=== PATIENT | female | born 1945 | race Caucasian/White ===

== ENCOUNTER 2017-01-11 12:06 | Inpatient (IN) | payer MEDICARE, OTHER ==
[2017-01-11] MEDS ORDERED: diphenhydrAMINE 50 MG/ML VIAL ONE (13:00)
[2017-01-11] MEDS ORDERED: Metoclopramide HCl 10 MG/2 ML VIAL ONE (13:00)
--- NOTE | 2017-01-11 13:03 | RAD ---
PORTABLE CHEST: HISTORY: Chest pain. FINDINGS: Heart size is within normal limits. Some atherosclerotic change of the aorta. Sclerotic-appearing d ensity in the right mid lung field could be related to a bone island or a granuloma within the lung. IMPRESSION: No active intrathoracic disease. POS: [facility]
[2017-01-11 13:10] LABS: #Monocytes 0.2 thou/uL (0.11-0.59); #Neutrophils 4.1 thou/uL (1.40-6.50); %Basophils 0.5 % (0.0-1.0); %Eosinophils 0.6 % (0.0-10.0); %Monocytes 3.7 % (0.0-10.0); Hematocrit 37.6 % (36.0-47.0); Mean Platelet Volume 5.4 fL (7.4-10.4); Red Blood Cell (RBC) Count 4.15 mill/uL (4.20-5.40); White Blood Cell (WBC) Count 5.4 thou/uL (4.8-10.8)
[2017-01-11 13:19] LABS: Prothrombin Time 13.6 SEC (12.0-14.7)
[2017-01-11 13:27] LABS: ALT (SGPT) 14 U/L (8-55); AST (SGOT) 18 U/L (5-34); Alkaline Phosphatase 88 U/L (40-150); Anion Gap 13 mmol/L (10-20); BUN (Urea Nitrogen) 15 mg/dL (9.8-20.1); Bilirubin, Total 0.5 mg/dL (0.2-1.2); Calc. Creatinine Clearance 0 mL/min (70-130); Carbon Dioxide 24 mmol/L (23-31); Chloride 105 mmol/L (98-107); Estimated GFR-MDRD 90; Protein, Total 6.4 g/dL (6.0-8.3)
[2017-01-11 13:30] LABS: Troponin I Less than 0.010 ng/mL (< 0.028)
[2017-01-11] MEDS ORDERED: Iopamidol 370 76% 100 ML VIAL ONE (13:37)
[2017-01-11] MEDS ORDERED: Dexamethasone 10 MG/ML VIAL ONE ×2 (13:47→13:50)
[2017-01-11] MEDS ORDERED: cefTRIAXone\\ROCEPHIN 1 GM VIAL ONE (13:48)
[2017-01-11] MEDS ORDERED: Sodium Chloride 0.9% 100 ML ONE (13:48)
--- NOTE | 2017-01-11 14:13 | CT ---
CT ANGIOGRAM OF THE HEAD WITH AND WITHOUT CONTRSAT CT ANGIOGRAM OF THE NECK WITH CONTRAST: DATE: 01/11/17. HISTORY: A 71-year-old female with right-sided severe headache, worst headache of life. Dr. Weiss discussed the findings by telephone with Dr. Jackson at 1:23 p.m. on 01/11/17. TECHNIQUE: Noncontrast scan of brain performed. IV contrast injected. Arterial bolus technique scan performed from aortopulmonic window to the vertex of the head. Coronal and sagittal 3D MIP reconstructions. FINDINGS: On a previous MRI of the brain on 03/17/14, there were signs of prior transsphenoidal resection of the pituitary gland, with material that was isointense to brain parenchyma on T1WI, and heterogeneously m ixed signal intensity on T2WI, within an expanded sphenoid sinus. This was covered by diffusely chalk machine operator nically thickened bone, including at the floor of the sphenoid sinus. Now, there is a large defect i n that osseous floor of the sphenoid sinus and sphenoid body, such that the soft tissue density mater ial filling the postoperative sphenoid sinus protrudes slightly into the posterior superior aspect of the nasal cavity, reaching the posterior aspects of the middle turbinates bilaterally. This soft ti ssue density material is not fat density. There is a small pocket of gas within this mass. There is also an approximately 4 mm metallic foreign body within the posterior aspect of the sella turcica. There is no evidence of recurrent pituitary macroadenoma within the sella turcica or suprasellar cist liliana. There is no high-grade stenosis, occlusion, or aneurysm of the anterior circulation or posterior circ ulation of the [place]. Right vertebral artery is dominant. No calcified atherosclerotic p laque is visualized, including in the carotid siphons or proximal bilateral internal carotid arteries . There is no evidence of high-grade stenosis involving the right subclavian, brachiocephalic, bilat eral vertebral, bilateral common carotid, or bilateral internal carotid arteries. Proximal left subc lavian artery is normal. Mid and distal portions are obscured by beam-hardening artifact from dense contrast material within the adjacent left subclavian vein. There is severe kyphosis of the cervical spine, with multilevel severe degenerative disk disease. There are laminectomy defects from C2-3 th rough C4-5. The ventricles are normal in size and configuration. There is no intracranial mass effect, midline s hift, or acute hemorrhage (subarachnoid, epidural, subdural, or intraaxial). No mass effect or midlin e shift. No extraaxial fluid collection. There are patchy moderate chronic ischemic white matter ch anges of the cerebral white matter bilaterally. Calvarium is intact. The maxillary, frontal, and et hmoid sinuses are grossly clear. Bilateral tympanomastoid cavities are also grossly clear. IMPRESSION: 1. Signs of previous transsphenoidal resection of pituitary lesion. 2. Soft tissue mass filling the sphenoid sinus, with new wide bony dehiscence of the floor of the sp henoid sinus and sphenoid body, such that the soft tissue density mass within the sphenoid sinus prot rudes into the posterior superior aspect of the nasal cavity. It is uncertain whether this represent s neoplastic tumor such as downward growth of a recurrent pituitary macroadenoma, or a chronic/subacu te infectious or inflammatory mass. Recommend otolaryngology consultation. 3. Small metallic foreign body within the sella turcica. 4. No acute intracranial findings. 5. No evidence of intracranial aneurysm or aneurysm rupture. 6. No evidence of abnormality of [place] or major arteries of neck. 7. Cervical spondylosis, with multilevel severe degenerative disc disease. 8. Status post laminectomies throughout most of the levels of the cervical spine, CODE CR POS: [facility]
[2017-01-11] MEDS ORDERED: Ondansetron ODT 4 MG TAB SL PRN (16:44)
[2017-01-11] MEDS ORDERED: Ondansetron HCl/PF 4 MG/2 ML Vial IVP PRN (16:44)
[2017-01-11] MEDS ORDERED: Acetaminophen 325 MG TAB PO PRN (16:44)
[2017-01-11 16:53] VITALS: BMI 19.5
[2017-01-11] MEDS ORDERED: FLU VACC TS2017-18 (>65YR) 0.5 ML SYRINGE IM ONE (18:00)
[2017-01-11] MEDS ORDERED: traMADol HCl 50 MG TAB PO PRN (18:45)
[2017-01-11 19:31] LABS: Troponin I Less than 0.010 ng/mL (< 0.028)
[2017-01-12] MEDS: cefTRIAXone\\ROCEPHIN 1 GM in Syringe 10 ML SLOW IVP SCH ×2 (01:12→15:06)
--- NOTE | 2017-01-12 06:58 | HP ---
DATE OF ADMISSION: 01/11/2017 PRIMARY CARE PHYSICIAN: Dr. Lmaonte Chan. CHIEF COMPLAINT: Headache. HISTORY OF PRESENT ILLNESS: The patient states she has had intermittent dizzy spells, waxing and wan ing without severely cause not related to positional aspects. No vertigo reported since approximatel y July to August. What made her present to the emergency department was predominantly a right-sided he adache wrapping around, increasing in intensity where she has had in her life, has a notable history of pituitary adenoma, which was grouped in [place]. Has had no known recurrence to this point. The patient otherwise has no acute complaints. CT head presentation to the emergency department has foun d a possible mass versus infection and sinuses. On review of past medical, family, social, and surgical history, the patient with migraine history wi th aura, hyperlipidemia, renal calculi, hypertension, chronic back pain. PAST SURGICAL HISTORY: Fixation of a closed nondisplaced fracture of right foot. SOCIAL HISTORY: Patient denies any tobacco or alcohol use, currently , living with spouse. ALLERGIES: No known drug allergies. CURRENT HOME MEDICATIONS: Included Tylenol #3 with codeine, multivitamin, omega 3 fish oil and CoQ10 . PHYSICAL EXAMINATION: VITAL SIGNS: On arrival to floor temperature of 97.7, pulse of 78, respiratory rate of 18, oxygen sa turation 96%, blood pressure 125/80. GENERAL: The patient is alert and oriented, no acute distress. HEENT: Normocephalic, atraumatic. Extraocular movements are intact. Pupils are equal, round, and r eactive to light and accommodate. Sensorium is intact to forehead and cheeks bilaterally. Cranial n erves II-XII intact grossly on exam. NECK: Supple, nontender. HEART: Regular rate and rhythm. No murmurs auscultated. LUNGS: Clear to auscultation bilaterally. No rubs or wheezes. ABDOMEN: Soft, nontender, positive bowel sounds throughout. EXTREMITIES: Lower extremities without cyanosis or edema. Patient appears anxious. LABORATORY WORK: White blood cell count of 5.4, hemoglobin 12.4, platelet count of 243, left shift o f 77.2% on neutrophils. INR of 1.0. Troponins x2 less than 0.01. Sodium of 138, potassium of 3.9, chloride 105, CO2 of 24, BUN of 15, creatinine of 0.65, glucose of 106, calcium of 9.0. AST of 18, A LT of 14. Albumin of 3.4. REVIEW OF IMAGING: CT angiogram of head. Previous resection of pituitary lesion, transsphenoidal ap proach, soft tissue mass filling sphenoid sinus, uncertain etiology, infection versus inflammatory ma ss, metallic clip on sella turcica noted. Cervical spine degenerative disk disease noted on exam rosalva alston has status post laminectomy of cervical spine, sinus CT pending. Chest x-ray without acute ca rdiopulmonary events. Patient did report chest tightness, no shortness breath, no cough. No fevers, no chills. Positive for headache. Positive waxing and waning, dizziness. Patient reports global s omatic pain radiating across multiple nerve roots upper and lower extremities bilaterally. ASSESSMENT AND PLAN: Sphenoidal mass. Differential diagnosis of possible recurrence of pituitary ad enoma versus infection versus inflammatory mass. ENT was contacted by the emergency department staff , so this could be worked up on an outpatient basis; however, concerns for patient's headache and kristina st tightness, desired observation status for rule out TIA versus acute coronary syndrome. Troponins x2 negative, no EKG changes, noncardiac pain and profile largely somatic. I do not feel this is card iac in nature. Pending CT sinus rated as well as pending MRI given any potential ability to do so wi th sella turcica clip in place. Better look for microadenoma metastases to brain, given cancer histo ry. Placing patient on Rocephin for continuation from emergency department. The patient is clinical ly stable if followup scans without acute findings, I would likely discharge the patient for outpatie nt evaluation and ENT versus inpatient. Dr. Ivy, did not feel this is an urgent matter. Dr. Dereje orozco is her database operator. She is pending a stress test outpatient on Friday from prior to this e xam. She had a recent echo with a good ejection fraction. Follow up CTA and MRI.
[2017-01-12] MEDS ORDERED: Fish Oil 1,000 MG CAP PO SCH (09:00)
[2017-01-12] MEDS ORDERED: Aspirin 325 MG TAB PO SCH (09:00)
[2017-01-12] MEDS ORDERED: Ubidecarenone 50 MG CAP PO SCH (09:00)
[2017-01-12] MEDS ORDERED: Acetaminophen/Codeine 30-300mg Tablet PO PRN (09:30)
[2017-01-12 11:36] VITALS: BP 98/52; TEMP 98.3
--- NOTE | 2017-01-12 11:58 | CT ---
CT PARANASAL SINUSES NONCONTRAST: DATE: 01/11/17. HISTORY: Headache. Abnormality of sphenoid sinus found on CT angiogram of the head obtained earlier on the . History of pituitary tumor removal in 1987. COMPARISON: MRI of brain 03/17/14. FINDINGS: There is a small metallic foreign body which is Y-shaped located at the posterior aspect of the sella turcica at midline. The craniocaudal dimension of this is approximately [address] The transverse diame ter width of the base of this metallic foreign body is approximately 1 mm. It creates streak artifac t. On the previous MRI of 2014, there is no magnetic susceptibility artifact in this location. There is a tiny T1 hypointense and T2 hypointense focus in this location on that previous MRI, which correspo nds to the metallic foreign body seen on the CT, and it is not ferromagnetic. Dr. Bright Peralta stated that the patient has had only one pituitary surgery in 1987, and no other pituitary surgeries therea fter. Previously, there was material that was T1 isointense to brain parenchyma and heterogenicity of mixed T2 signal, filling the entire postsurgical sphenoid sinus/ sphenoid body cavity. On that previous M RI, what appeared to be a thick rind of sclerotic bone appeared to be intact at the floor of the sphe noid sinus, its contents from the posterior superior nasal cavity. On the current CT, abhishek t bone is widely dehiscent, such that the soft tissue density contents of the sphenoid sinus protrude into the posterior superior aspect of the nasal cavity contacting the posterior aspects of the middl e turbinates bilaterally. The degree of such contact is not necessarily greater than what the appare ntly thickened osseous gracia of the floor of the sphenoid sinus was doing relative to the middle turb inates on the previous MRI. The density of this soft tissue density mass is approximately 65 HU (not consistent with fat). The osseous floor of the sella turcica is very thin, but does not appear to b e destroyed. There is no obvious moderate-size or large suprasellar mass. The posterior gracia of th e sphenoid sinus are sclerotic. There is a 5 mm bubble of gas centered slightly to the left of midli ne, within the postsurgical sphenoid sinus. The anterior portion of the soft tissue density mass in the region of the sphenoid sinus encroaches upon the posterior medial aspects of the ethmoid air cell s bilaterally, similar to the previous MRI of 2005. The left posterior ethmoid air cell is almost to tally opacified. Right posterior ethmoid air cell is relatively clear. The bilateral anterior ethmo id air cells, bilateral frontal sinuses, bilateral maxillary sinuses, and bilateral tympanomastoid ca vities, are grossly clear. The orbits are clear. IMPRESSION: 1. Postsurgical changes of the sphenoid body, status post transsphenoidal resection of pituitary, ol d. 2. The postsurgical cavity of the sphenoid bdy/sinus is filled with soft tissue density material (no t fat), except for a single bubble of gas. 3. The floor of the sphenoid sinus/sphenoid body is widely dehiscent, such that the soft tissue dens ity mass contents contact the posterior aspect of the bilateral middle turbinates in the posterior na iona cavity. 4. Small metallic clip within the sella turcica. ADDENDUM: MRI was performed later today, 01/12/2017, demonstrating no interval change at all since 2014. What was thought to be thickened bony floor of the postsurgical sphenoid bone body on the 2014 MRI is now shown to represent enhancing scar tissue. The bony floor was widely absent in 2014 due to the old ahmmond rgery, no different than today. Therefore, there is no acute infection. POS: [facility]
--- NOTE | 2017-01-12 17:52 | MRI ---
MRI BRAIN WITH AND WITHOUT CONTRAST: DATE: 01-12-17 HISTORY: 71-year-old female with right sided worst headache of life. History of surgical resection of pituitar y tumor several decades ago. Apparently new finding of wide dehiscense of the osseous gracia of the fl oor of the sphenoid sinus and sphenoid body on recent CT. After discussion with Dr. Bright Peralta, who had interviewed the patient and her , it was confirmed that the patient did not have any grisel tional surgery after the 03-17-14 MRI, in fact none after the single transsphenoidal pituitary resectio n several decades ago. Therefore, the patient was approved for the current MRI, after concluding that the metallic clip in the sella turcica is non-ferromagnetic. COMPARISON: MRI 03-17-14 TECHNIQUE: Multiple sequences obtained in axial, sagittal, and coronal planes; pre and post IV injection of gado linium-based contrast agent: 11 ml of MultiHance. Additional coronal T2 and coronal post contrast T1 fat suppressed sequences performed. FINDINGS: Again demonstrated is the partially empty sella turcica. There is no magnetic susceptibility artifact in the sella turcica, indicating that the metallic clip in the sella demonstrated on recent CT is no n-ferromagnetic. No intrasellar mass. Again demonstrated are the post-surgical changes of the body o f the sphenoid, with obliteration of the normal sphenoid sinus, replaced by material that is almost i sointense to mix matter on precontrast T1WI, and of mixed signal intensity on T2WI and FLAIR, includ ing moderately hyperintense signal posteriorly, and an approximately 1 x 1.5 cm T2 and FLAIR hypointe nse area at its far anterior aspect. What was thought to represent thickened osseous floor of the bod y of the sphenoid bone (T1 hyperintense that was thought to be fatty bone marrow), is shown by the cu rrent study to not represent fatty bone marrow signal. Instead, it represents a thick rim of enhancin g tissue that is unchanged to the 2015 MRI, probably scar tissue. The degree of encroachment upon the posterior superior aspect of the nasal cavity, abutting the posterior aspects of the middle terminat es, has not changed since 2015. Its internal contents have strongly restricted diffusion, which was t he case on the previous MRI of 2015. There is no restricted diffusion in the brain parenchyma. There are multiple scattered mild chronic ischemic white matter changes of the cerebral subcortical and jareth p white matter. Ventricles are normal in size and configuration. No evidence of recent or remote intr aaxial hemorrhage, mass effect, midline shift, abnormal enhancement, or extraaxial fluid collection. There is no interval change overall in the entire MRI. There is no dural venous sinus thrombosis. IMPRESSION: 1. Status post transsphenoidal resection of pituitary. 2. The material occupying the post-surgical body of the sphenoid bone has not changed since 03-17-14, a nd apparently represents chronic enhancing scar tissue and/or non-fatty surgical packing material. Th ere is indeed a wide defect of the osseous floor of the body of the sphenoid bone, but this is unchan ged since 2014. There is no evidence of malignancy or acute infection. 3. Mild chronic ischemic white matter changes of the brain, not unusual for age. 4. There is no interval change overall since 03-17-14. PAZ Villaseñor POS: [facility]
--- NOTE | 2017-02-08 11:37 | EKG ---
Test Reason : VERONICA PRESSURE Blood Pressure : / mmHG Vent. Rate : 086 BPM Atrial Rate : 086 BPM P-R Int : 160 ms QRS Dur : 108 ms QT Int : 390 ms P-R-T Axes : 074 -40 069 degrees QTc Int : 466 ms Sinus rhythm with occasional Premature ventricular complexes and Fusion complexes Possible Left atrial enlargement Left axis deviation ST abnormality, possible digitalis effect No STEMI Abnormal ECG Confirmed by MALORIE Ernandez, MARIO ([id number]), film editor CAESAR PARIKH ([id number]) on 02/08/2017 11:36:45 AM Referred By: MALORIE Confirmed By:MARIO ESPANA M.D.
== END 2017-01-12 16:01 | disposition home or self-care (01) | DRG 103 ==
LOC: SCSER 12:06 → 2SE 16:32
PROVIDERS: ADMIT Family Medicine; ATTEND Family Medicine
DX: R51 Headache (principal); G89.29 Other chronic pain; R07.89 Other chest pain; Z86.018 Personal history of other benign neoplasm; Z87.442 Personal history of urinary calculi; M54.9 Dorsalgia, unspecified
CPT/HCPCS: 31237; 36415; 70496; 70498; 70553; 71010; 80053; 82553; 84484; 85025; 85610; 90471; 90682; 93005; 96361; 96365; 96375; 99202; G0008; G0463; J0696; J1100; J1200; J2765; J7050; Q2036

== ENCOUNTER 2017-03-10 08:44 | Emergency (ER) | payer MEDICARE, OTHER ==
[2017-03-10 09:18] LABS: Bilirubin Negative (Negative); Blood, Urine Small (Negative); Clarity Clear (Clear); Glucose, Urine (Dipstick) Negative (Negative); Leukocyte Trace (Negative); Nitrite Negative (Negative); Protein, Urine (Dipstick) Negative (Neg-Trace); Specific Gravity, Urine 1.015 (1.005-1.030); Urobilinogen 0.2 mg/dL (0.2-1.0)
[2017-03-10 09:26] LABS: RBC/HPF 0-3 HPF (0-3); Squamous Epithelial 0-3 HPF (0-3); WBC/HPF 0-3 HPF (0-3)
[2017-03-10 09:27] LABS: Bacteria/HPF None Seen HPF (None Seen)
[2017-03-10 10:12] LABS: Anion Gap 11 mmol/L (10-20); BUN (Urea Nitrogen) 13 mg/dL (9.8-20.1); Calc. Creatinine Clearance 0 mL/min (70-130); Calcium 9.6 mg/dL (7.8-10.44); Carbon Dioxide 29 mmol/L (23-31); Chloride 106 mmol/L (98-107); Estimated GFR-MDRD 81; Glucose 92 mg/dL (83-110); Potassium 3.9 mmol/L (3.5-5.1); Sodium 142 mmol/L (136-145)
[2017-03-10] MEDS ORDERED: traMADol HCl 50 MG TAB ONE (10:33)
--- NOTE | 2017-03-10 10:35 | CT ---
CT ABDOMEN AND PELVIS WITHOUT CONTRAST: Date: 03/10/17 HISTORY: Left-sided flank pain. FINDINGS: Absence of oral and IV contrast reduces the sensitivity of exam, particularly for evaluation of solid organs and bowel. There are mild dependent changes in the lung bases. No calcified gallstones are seen. A small hiatal hernia is present. No free air or free fluid is seen in the abdomen or pelvis. A normal appearing jose endix is present. There are a few punctate calculi in the kidneys. No calculi seen in the ureters or the urinary bladde r. No hydroureteronephrosis is present on either side. Uterus and left ovary are visualized. The left ovary measures about 2.0 cm. An underlying left ovaria n mass cannot be excluded. There are vascular calcifications without evidence of aneurysmal dilatation of the abdominal aorta. T here is fecal material in the colon. Degenerative changes are present in the spine. IMPRESSION: 1. Nonobstructing punctate renal calculi. 2. Questionable 2.0 cm left ovarian mass. Further evaluation with pelvic ultrasound would be helpful . 3. Small hiatal hernia. POS: [facility]
== END 2017-03-10 10:55 | disposition home or self-care (01) ==
LOC: SCSER 08:44
DX: M54.5 Low back pain (principal); E78.2 Mixed hyperlipidemia
CPT/HCPCS: 36415; 74176; 80048; 81003; 81015

== ENCOUNTER 2017-09-04 09:45 | Outpatient (CLI) | payer MEDICARE, OTHER | END 2017-09-04 09:46 | disposition home or self-care (01) | LOC: BICRAD 09:45 | PROVIDERS: ATTEND Family Medicine | DX: R06.02 Shortness of breath (principal) | CPT/HCPCS: 71046 ==

== ENCOUNTER 2017-09-04 13:02 | Outpatient (CLI) | payer MEDICARE, OTHER ==
[~2017-09-04 13:02] MED LIST: Iopamidol 370 76% 100 ML VIAL ONE
--- NOTE | 2017-09-04 14:23 | CT ---
CT ANGIOGRAM THORAX WITH IV CONTRAST AND 3D RECONSTRUCTIONS: Date: 09-04-17 History: Chest pain and shortness of breath with exertion. FINDINGS: There are no filling defects seen in the pulmonary arteries to suggest a pulmonary embolus. Thoracic aorta is not well opacified but is normal in caliber with minimal vascular calcifications se en in the thoracic aorta. No obvious aortic dissection is appreciated on this limited enhancement of the thoracic aorta. There is no evidence of lymphadenopathy. There is a large course calcification seen in the right upper lobe, which may represent calcified gr anuloma. There is minimal symmetric apical pleural and parenchymal scarring. No discrete noncalcified pulmonary nodule or mass is seen. There is no pleural effusion identified. Upper abdomen demonstrates a normal nonenhanced CT appearance. There is evidence of a small hiatal he rnia. There is a prominent Schmorl's node at the superior endplate of the T8 vertebral body. IMPRESSION: 1. No CT evidence of a pulmonary embolus. 2. Mild vascular calcifications. 3. Small hiatal hernia. POS: [facility]
== END 2017-09-04 13:03 | disposition home or self-care (01) ==
LOC: CT 13:02
PROVIDERS: ATTEND Family Medicine
DX: R07.9 Chest pain, unspecified (principal); I70.0 Atherosclerosis of aorta; K44.9 Diaphragmatic hernia without obstruction or gangrene
CPT/HCPCS: 71046; 71275

== ENCOUNTER 2019-06-18 19:48 | Emergency (ER) | payer MEDICARE, OTHER ==
--- NOTE | 2019-06-18 20:30 | RAD ---
Chest one view HISTORY: Headache. Hypertension. COMPARISON: 09/04/2017. FINDINGS: Cardiac silhouette is magnified by projection. Pulmonary vasculature is unremarkable. Mediastinum is midline. Lungs remain hyperinflated. Calcified granulomata are consistent with healed granulomatous disease. No lobar consolidation or steph dence of pneumothorax. IMPRESSION : No active cardiopulmonary abnormalities are demonstrated.
[2019-06-18 20:31] LABS: #Basophils 0.1 thou/uL (0.0-0.2); #Eosinphils 0.4 thou/uL (0.0-0.7); #Lymphocytes 2.2 thou/uL (1.20-3.40); #Monocytes 0.4 thou/uL (0.11-0.59); #Neutrophils 2.5 thou/uL (1.40-6.50); %Basophils 1.2 % (0.0-1.0); %Eosinophils 6.7 % (0.0-10.0); %Lymphocytes 39.2 % (21.0-51.0); %Monocytes 7.5 % (0.0-10.0); %Neutrophils 45.4 % (42.0-75.0); Hemoglobin 11.7 g/dL (12.0-16.0); Mean Corpuscular HGB CONC 32.8 g/dL (32.0-36.0); Mean Corpuscular Volume 91.5 fL (78.0-98.0); Mean Platelet Volume 6.9 fL (7.4-10.4); Platelet Count 234 thou/uL (130-400); RBC Distribution Width 12.8 % (11.5-14.5); Red Blood Cell (RBC) Count 3.89 mill/uL (4.20-5.40); White Blood Cell (WBC) Count 5.6 thou/uL (4.8-10.8)
[2019-06-18 20:59] LABS: ALT (SGPT) 11 U/L (8-55); AST (SGOT) 16 U/L (5-34); Albumin 3.9 g/dL (3.4-4.8); Alkaline Phosphatase 94 U/L (40-110); Anion Gap 15 mmol/L (10-20); BUN (Urea Nitrogen) 16 mg/dL (9.8-20.1); Bilirubin, Total 0.3 mg/dL (0.2-1.2); Calc. Creatinine Clearance 0 mL/min (70-130); Calcium 9.5 mg/dL (7.8-10.44); Carbon Dioxide 23 mmol/L (23-31); Chloride 109 mmol/L (98-107); Estimated GFR-MDRD 68; Globulin 2.8 g/dL (2.4-3.5); Glucose 104 mg/dL (83-110); Potassium 4.2 mmol/L (3.5-5.1); Protein, Total 6.7 g/dL (6.0-8.3); Sodium 143 mmol/L (136-145)
== END 2019-06-18 21:50 | disposition home or self-care (01) ==
LOC: ERS 19:48
DX: I10 Essential (primary) hypertension (principal); E78.2 Mixed hyperlipidemia
CPT/HCPCS: 36415; 71045; 80053; 84484; 85025; 93005

== ENCOUNTER 2019-12-16 09:22 | Outpatient (CLI) | payer MEDICARE, OTHER ==
--- NOTE | 2019-12-16 11:01 | MRI ---
MRI with and without contrast: 12/16/2019 COMPARISON:01/12/2017 HISTORY:Intractable migraine headaches TECHNIQUE: Multiplanar multisequence MR imaging of thebrain with and without contrast Findings:The diffusion weighted imaging demonstrates no evidence for acute infarction. The axial gradient echo imaging demonstrates no evidence for intracranial hemorrhage. No midline shif t or mass effect is seen. No ventricular enlargement is evident. There is a mild/moderate degree of diffuse cerebral volume loss with associated prominence of the CSF containing spaces and numerous prominent Virchow-Jhon spaces. There are multiple subcentimeter scattered foci of increased T2 and FLAIR signal within the periventricular, deep, and subcortical whi te matter, evidence of relatively stable small vessel disease. The postcontrast imaging demonstrates no abnormal enhancement within the brain parenchyma. Stable nod ular lesions are seen associated with the scalp. No acute intracranial abnormality is noted. Partially imaged cervical spine demonstrates exaggerated upper cervical kyphosis. IMPRESSION:Numerous chronic findings as described above. No evidence for intracranial hemorrhage, acu te infarction, mass lesion, or mass effect.
[2019-12-16] MEDS ORDERED: Magnevist 469MG/ML 20 ML VIAL ONE (13:47)
== END 2019-12-16 09:23 | disposition home or self-care (01) ==
LOC: BICMRI 09:22
PROVIDERS: ATTEND Family Medicine
DX: G43.011 Migraine without aura, intractable, with status migrainosus (principal); G93.89 Other specified disorders of brain
CPT/HCPCS: 70553; 82565

== ENCOUNTER 2020-08-31 13:21 | Outpatient (CLI) | payer MEDICARE, OTHER | END 2020-08-31 13:22 | disposition home or self-care (01) | LOC: BICMRI 13:21 | PROVIDERS: ATTEND Family Medicine | DX: M54.2 Cervicalgia (principal); M47.812 Spondylosis without myelopathy or radiculopathy, cervical region; M48.02 Spinal stenosis, cervical region; Z98.890 Other specified postprocedural states | CPT/HCPCS: 72156 ==

== ENCOUNTER 2020-12-19 12:37 | Outpatient (CLI) | payer MEDICARE, OTHER | END 2020-12-19 12:38 | disposition home or self-care (01) | LOC: BICMAMMO 12:37 | PROVIDERS: ATTEND Family Medicine | DX: Z12.31 Encounter for screening mammogram for malignant neoplasm of breast (principal); Z13.820 Encounter for screening for osteoporosis; Z78.0 Asymptomatic menopausal state; E28.39 Other primary ovarian failure; M81.0 Age-related osteoporosis without current pathological fracture | CPT/HCPCS: 77063; 77067; 77080 ==

== ENCOUNTER 2021-03-21 07:00 | Inpatient (IN) | payer MEDICARE, OTHER ==
[2021-03-26] MEDS ORDERED: Bacitracin Zinc Ointment 30 gm TUBE ONE (10:34)
[2021-03-26] MEDS ORDERED: ceFAZolin Sodium (SDC) 2 GM/100 ML BAG ONE (10:46)
[2021-03-26] MEDS ORDERED: Fentanyl 250 MCG/5 ML VIAL ONE ×2 (10:59→14:30)
[2021-03-26] MEDS ORDERED: Rocuronium Bromide 10 MG/ML (10ML VIAL) ONE (11:05)
[2021-03-26] MEDS ORDERED: ePHEDrine 50 MG/ML VIAL ONE (11:05)
[2021-03-26] MEDS ORDERED: Dexamethasone 20 MG/5 ML VIAL ONE (11:05)
[2021-03-26] MEDS ORDERED: PHENYLEPHRINE-NS 100 MCG/ML 10 ML SYRINGE ONE (11:05)
[2021-03-26] MEDS ORDERED: Lidocaine 1% PF 5 ML VIAL ONE (11:05)
[2021-03-26] MEDS ORDERED: Ondansetron PF 4 MG/2 ML Vial ONE ×2 (11:05→14:41)
[2021-03-26] MEDS ORDERED: PROPOFOL 200 MG/20 ML VIAL ONE (11:05)
[2021-03-26] MEDS ORDERED: SUGAMMADEX SODIUM 200 MG/2 ML VIAL ONE (13:52)
[2021-03-26] MEDS ORDERED: Ondansetron HCl/PF 4 MG/2 ML Vial IVP PRN (14:24)
[2021-03-26] MEDS ORDERED: HYDROmorphone 2 MG/ML VIAL SLOW IVP PRN (14:24)
[2021-03-26] MEDS ORDERED: Promethazine HCl 25 MG/ML VIAL IVPB PRN (14:24)
[2021-03-26] MEDS ORDERED: Promethazine HCl 25 MG/ML VIAL IM PRN ×2 (14:24→14:45)
[2021-03-26] MEDS ORDERED: Ondansetron PF 4 MG/2 ML Vial IVP PRN (14:45)
[2021-03-26] MEDS ORDERED: diphenhydrAMINE 50 MG/ML VIAL IVP PRN (14:45)
[2021-03-26] MEDS ORDERED: diphenhydrAMINE 25 MG CAP PO PRN (14:45)
[2021-03-26] MEDS ORDERED: Promethazine 25 MG TAB PO PRN (14:45)
[2021-03-26] MEDS ORDERED: Milk Of Magnesia 30 ML UDCUP PO PRN (14:45)
[2021-03-26] MEDS ORDERED: Mag-Al 1200 mg/1200 mg/30 ML UDCUP PO PRN (14:45)
[2021-03-26] MEDS ORDERED: traMADol HCl 50 MG TAB PO PRN ×2 (14:45)
[2021-03-26] MEDS ORDERED: Promethazine HCl 12.5 MG SUPP PR PRN (14:45)
[2021-03-26 16:06] VITALS: BMI 19.9
[2021-03-26] MEDS: Morphine 4 MG/ML VIAL SLOW IVP PRN ×2 (16:14→21:44)
[2021-03-26] MEDS: Cyclobenzaprine 10 MG TAB PO PRN (17:16)
[2021-03-26] MEDS: Acetaminophen/Codeine 30-300mg Tablet PO PRN (17:16)
[2021-03-26] MEDS: Sodium Chloride 0.9% 1,000 ML IV SCH (17:17)
[2021-03-26] MEDS: CEFAZOLIN 2 GM, Admixture Fee 1 EACH in Sodium Chloride 0.9% 100 ML IVPB SCH (22:09)
[2021-03-27] MEDS: Morphine 4 MG/ML VIAL SLOW IVP PRN ×4 (01:40→17:19)
[2021-03-27] MEDS: Sodium Chloride 0.9% 1,000 ML IV SCH ×2 (04:26→07:59)
[2021-03-27] MEDS: CEFAZOLIN 2 GM, Admixture Fee 1 EACH in Sodium Chloride 0.9% 100 ML IVPB SCH ×3 (04:26→19:58)
[2021-03-27 06:50] LABS: Cardiac Risk 5.7 (Less than 4.5)
[2021-03-27] MEDS: Fish Oil 1,000 MG CAP PO SCH (07:52)
[2021-03-27] MEDS: Ubidecarenone 50 MG CAP PO SCH (07:52)
[2021-03-27] MEDS ORDERED: CIDER VINEGAR PO SCH (09:00)
[2021-03-27] MEDS ORDERED: CINNAMON BARK PO SCH (09:00)
[2021-03-27] MEDS ORDERED: (Garlic [Garlic] 1 TABLET Tablet) PO SCH (09:00)
[2021-03-27] MEDS ORDERED: (Cinnamon Bark [Cinnamon] 500 MG Capsule) PO SCH (09:00)
[2021-03-27] MEDS ORDERED: CIDER VINEGAR 300 MG PO SCH (09:00)
[2021-03-27] MEDS ORDERED: Fish Oil 1,000 MG CAP PO SCH (09:00)
[2021-03-27] MEDS: Cyclobenzaprine 10 MG TAB PO PRN (10:02)
[2021-03-27] MEDS: Acetaminophen/Codeine 30-300mg Tablet PO PRN ×2 (10:02→14:56)
[2021-03-28] MEDS: Sodium Chloride 0.9% 1,000 ML IV SCH (02:30)
[2021-03-28] MEDS: Morphine 4 MG/ML VIAL SLOW IVP PRN ×4 (02:32→17:48)
[2021-03-28] MEDS: CEFAZOLIN 2 GM, Admixture Fee 1 EACH in Sodium Chloride 0.9% 100 ML IVPB SCH (03:21)
[2021-03-28] MEDS: Cephalexin 250 MG CAP PO SCH ×3 (06:05→17:47)
[2021-03-28] MEDS: Fish Oil 1,000 MG CAP PO SCH (10:12)
[2021-03-28] MEDS: Acetaminophen/Codeine 30-300mg Tablet PO PRN (10:12)
[2021-03-28] MEDS: Ubidecarenone 50 MG CAP PO SCH (10:12)
[2021-03-29] MEDS: Sodium Chloride 0.9% 1,000 ML IV SCH ×3 (00:49→23:16)
[2021-03-29] MEDS: Cephalexin 250 MG CAP PO SCH ×5 (00:50→23:17)
[2021-03-29] MEDS: Cyclobenzaprine 10 MG TAB PO PRN ×2 (00:54→15:05)
[2021-03-29] MEDS: Acetaminophen/Codeine 30-300mg Tablet PO PRN ×4 (00:55→18:11)
[2021-03-29] MEDS: Fish Oil 1,000 MG CAP PO SCH (09:55)
[2021-03-29] MEDS: Ubidecarenone 50 MG CAP PO SCH (09:55)
[2021-03-30] MEDS: Cephalexin 250 MG CAP PO SCH ×2 (05:22→11:55)
[2021-03-30] MEDS: Acetaminophen/Codeine 30-300mg Tablet PO PRN ×3 (05:22→14:17)
[2021-03-30] MEDS: Cyclobenzaprine 10 MG TAB PO PRN (05:23)
[2021-03-30] MEDS: Ubidecarenone 50 MG CAP PO SCH (09:04)
[2021-03-30] MEDS: Fish Oil 1,000 MG CAP PO SCH (09:04)
[2021-03-30] MEDS: Sodium Chloride 0.9% 1,000 ML IV SCH (11:58)
[2021-03-30 12:11] VITALS: BP 114/74; TEMP 98.2
== END 2021-03-30 15:00 | DRG 454 ==
LOC: SURG A 03-26 08:14 → SURG B 03-26 15:26
PROVIDERS: ADMIT Neurological Surgery; ATTEND Neurological Surgery
PROC: 0RG20A0 Fusion of 2 or more Cervical Vertebral Joints with Interbody Fusion Device, Anterior Approach, Anterior Column, Open Approach (ICD-10-PCS; principal; 2021-03-26)
PROC: 0RG2071 Fusion of 2 or more Cervical Vertebral Joints with Autologous Tissue Substitute, Posterior Approach, Posterior Column, Open Approach (ICD-10-PCS; 2021-03-26)
PROC: 0RB30ZZ Excision of Cervical Vertebral Disc, Open Approach (ICD-10-PCS; 2021-03-26)
PROC: 00NW0ZZ Release Cervical Spinal Cord, Open Approach (ICD-10-PCS; 2021-03-26)
DX: M48.02 Spinal stenosis, cervical region (principal); M47.12 Other spondylosis with myelopathy, cervical region; Z20.822 Contact with and (suspected) exposure to COVID-19; M25.78 Osteophyte, vertebrae; E78.5 Hyperlipidemia, unspecified; I10 Essential (primary) hypertension; E78.2 Mixed hyperlipidemia; Z88.8 Allergy status to other drugs, medicaments and biological substances; Z87.891 Personal history of nicotine dependence
CPT/HCPCS: 36415; 76000; 80061; 93970; C1713; C1768; C1776; J0690; J1100; J2270; J2405; J2704; J3010; J3370; J3490; J7050

== ENCOUNTER 2021-03-21 07:20 | Outpatient (CLI) | payer MEDICARE, OTHER ==
[2021-03-21 09:48] LABS: Hemoglobin 10.4 g/dL (12.0-15.5); Mean Corpuscular HGB CONC 29.5 g/dL (32.0-36.0); Mean Corpuscular Hemoglobin 25.9 pg (27.0-33.0); Mean Platelet Volume 9.5 fl (7.4-10.4); Platelet Count 294 10x3/uL (150-450); RBC Distribution Width 16.8 % (11.5-14.5); Red Blood Cell (RBC) Count 4.01 10x6/uL (3.90-5.03); White Blood Cell (WBC) Count 4.7 10x3/uL (3.5-10.5)
[2021-03-21 10:10] LABS: Anion Gap 17 mmol/L (10-20); BUN (Urea Nitrogen) 17 mg/dL (9.8-20.1); Calc. Creatinine Clearance 0 mL/min (70-130); Calcium 9.3 mg/dL (7.8-10.44); Carbon Dioxide 23 mmol/L (23-31); Chloride 109 mmol/L (98-107); Glucose 93 mg/dL (83-110); Potassium 4.7 mmol/L (3.5-5.1); Sodium 144 mmol/L (136-145)
[2021-03-21 23:00] LABS: SARS-CoV-2 PCR by NAA Not Detected (NotDetected)
== END 2021-03-21 07:21 | disposition home or self-care (01) ==
LOC: LABBT 07:20
PROVIDERS: ATTEND Neurological Surgery
DX: Z01.818 Encounter for other preprocedural examination (principal); M47.12 Other spondylosis with myelopathy, cervical region; Z20.822 Contact with and (suspected) exposure to COVID-19
CPT/HCPCS: 80048; 85027; 93005; U0003; U0005; 93010

== ENCOUNTER 2021-04-05 12:26 | Outpatient (CLI) | payer MEDICARE, OTHER | END 2021-04-05 12:27 | disposition home or self-care (01) | LOC: TBSIIMAG 12:26 | PROVIDERS: ATTEND Neurological Surgery | DX: M47.812 Spondylosis without myelopathy or radiculopathy, cervical region (principal); Z98.890 Other specified postprocedural states | CPT/HCPCS: 72040 ==

== ENCOUNTER 2021-04-06 15:53 | Emergency (ER) | payer MEDICARE, OTHER ==
[2021-04-06 16:40] LABS: #Eosinphils 0.1 thou/uL (0.0-0.7); #Monocytes 0.4 thou/uL (0.11-0.59); %Basophils 0.6 % (0.0-1.0); %Eosinophils 1.6 % (0.0-10.0); %Lymphocytes 15.8 % (21.0-51.0); %Monocytes 6.4 % (0.0-10.0); %Neutrophils 75.6 % (42.0-75.0); Hemoglobin 10.5 g/dL (12.0-16.0); Mean Corpuscular HGB CONC 31.3 g/dL (32.0-36.0); Mean Corpuscular Hemoglobin 27.4 pg (27.0-31.0); Mean Corpuscular Volume 87.7 fL (78.0-98.0); Mean Platelet Volume 6.7 fL (7.4-10.4); Platelet Count 294 thou/uL (130-400); Red Blood Cell (RBC) Count 3.84 mill/uL (4.20-5.40); White Blood Cell (WBC) Count 6.6 thou/uL (4.8-10.8)
[2021-04-06 16:50] LABS: INR-International Normal Ratio 1.2; PTT 33.8 sec (22.9-36.1); Prothrombin Time 15.3 sec (12.0-14.7)
[2021-04-06 17:01] LABS: ALT (SGPT) 8 U/L (8-55); AST (SGOT) 18 U/L (5-34); Albumin 3.6 g/dL (3.4-4.8); Alkaline Phosphatase 86 U/L (40-110); Anion Gap 14 mmol/L (10-20); BUN (Urea Nitrogen) 23 mg/dL (9.8-20.1); Bilirubin, Total 0.4 mg/dL (0.2-1.2); Calc. Creatinine Clearance 0 mL/min (70-130); Calcium 8.8 mg/dL (7.8-10.44); Carbon Dioxide 23 mmol/L (23-31); Chloride 106 mmol/L (98-107); Globulin 2.9 g/dL (2.4-3.5); Glucose 159 mg/dL (83-110); Potassium 3.6 mmol/L (3.5-5.1); Protein, Total 6.5 g/dL (5.8-8.1); Sodium 139 mmol/L (136-145)
[2021-04-06] MEDS ORDERED: Apixaban 5 MG TAB PO SCH (18:45)
== END 2021-04-06 22:08 ==
LOC: ERS 15:53
DX: I26.99 Other pulmonary embolism without acute cor pulmonale (principal); K82.9 Disease of gallbladder, unspecified; E78.5 Hyperlipidemia, unspecified; I10 Essential (primary) hypertension; E78.2 Mixed hyperlipidemia
CPT/HCPCS: 36415; 80053; 84484; 85025; 85610; 85730; 93005

== ENCOUNTER 2021-07-06 08:20 | Outpatient (CLI) | payer MEDICARE, OTHER | END 2021-07-06 08:21 | disposition home or self-care (01) | LOC: TBSIIMAG 08:20 | PROVIDERS: ATTEND Neurological Surgery | DX: M47.12 Other spondylosis with myelopathy, cervical region (principal); M50.01 Cervical disc disorder with myelopathy, high cervical region | CPT/HCPCS: 72040 ==

== ENCOUNTER 2022-03-07 19:28 | Emergency (ER) | payer MEDICARE, OTHER ==
[2022-03-07 20:29] LABS: #Basophils 0.1 thou/uL (0.0-0.2); #Eosinphils 0.3 thou/uL (0.0-0.7); #Lymphocytes 2.4 thou/uL (1.20-3.40); #Monocytes 0.4 thou/uL (0.11-0.59); #Neutrophils 2.1 thou/uL (1.40-6.50); %Eosinophils 5.5 % (0.0-10.0); %Lymphocytes 46.6 % (21.0-51.0); %Monocytes 6.9 % (0.0-10.0); %Neutrophils 40.1 % (42.0-75.0); Hemoglobin 10.9 g/dL (12.0-16.0); Mean Corpuscular HGB CONC 32.6 g/dL (32.0-36.0); Mean Corpuscular Hemoglobin 28.6 pg (27.0-31.0); Mean Corpuscular Volume 87.7 fl (78.0-98.0); Mean Platelet Volume 6.7 fL (7.4-10.4); Platelet Count 276 10x3/uL (130-400); RBC Distribution Width 14.1 % (11.5-14.5); Red Blood Cell (RBC) Count 3.82 mill/uL (4.20-5.40); White Blood Cell (WBC) Count 5.2 10x3/uL (4.8-10.8)
[2022-03-07 20:50] LABS: ALT (SGPT) 11 U/L (8-55); AST (SGOT) 13 U/L (5-34); Albumin 3.7 g/dL (3.4-4.8); Alkaline Phosphatase 78 U/L (40-110); Anion Gap 14 mmol/L (10-20); BUN (Urea Nitrogen) 17 mg/dL (9.8-20.1); Bilirubin, Total 0.2 mg/dL (0.2-1.2); Calc. Creatinine Clearance 0 mL/min (70-130); Calcium 9.2 mg/dL (7.8-10.44); Carbon Dioxide 21 mmol/L (23-31); Chloride 109 mmol/L (98-107); Estimated GFR 73; Glucose 160 mg/dL (83-110); Potassium 3.8 mmol/L (3.5-5.1); Protein, Total 6.7 g/dL (5.8-8.1); Sodium 140 mmol/L (136-145)
== END 2022-03-07 21:13 | disposition home or self-care (01) ==
LOC: ERS 19:28
DX: I10 Essential (primary) hypertension (principal); E78.5 Hyperlipidemia, unspecified; E78.00 Pure hypercholesterolemia, unspecified; Z79.01 Long term (current) use of anticoagulants
CPT/HCPCS: 36415; 80053; 83880; 84484; 85025; 93005

== ENCOUNTER 2022-05-15 10:23 | Outpatient (CLI) | payer MEDICARE | END 2022-05-15 10:24 | disposition home or self-care (01) | LOC: BICMAMMO 10:23 | PROVIDERS: ATTEND Family Medicine | DX: M81.0 Age-related osteoporosis without current pathological fracture (principal) | CPT/HCPCS: 77080 ==

== ENCOUNTER 2022-05-27 08:09 | Outpatient (CLI) | payer MEDICARE ==
[2022-05-27] MEDS ORDERED: Magnevist 469MG/ML 20 ML VIAL ONE (11:31)
== END 2022-05-27 08:10 | disposition home or self-care (01) ==
LOC: TBSIIMAG 08:09
PROVIDERS: ATTEND Neurological Surgery
DX: R20.0 Anesthesia of skin (principal); R51.9 Headache, unspecified; M47.812 Spondylosis without myelopathy or radiculopathy, cervical region; M50.30 Other cervical disc degeneration, unspecified cervical region; R22.0 Localized swelling, mass and lump, head; Z98.1 Arthrodesis status
CPT/HCPCS: 70553; 72040; 82565; A9579

== ENCOUNTER 2022-11-18 08:28 | Outpatient (CLI) | payer MEDICARE | END 2022-11-18 08:29 | disposition home or self-care (01) | LOC: BICMRI 08:28 | PROVIDERS: ATTEND Neurological Surgery | DX: M47.12 Other spondylosis with myelopathy, cervical region (principal); M47.893 Other spondylosis, cervicothoracic region; Z98.890 Other specified postprocedural states | CPT/HCPCS: 72141 ==

== ENCOUNTER 2022-11-28 21:33 | Emergency (ER) | payer MEDICARE ==
[2022-11-29 00:26] LABS: #Eosinphils 0.1 thou/uL (0.0-0.7); #Monocytes 0.3 thou/uL (0.11-0.59); #Neutrophils 4.4 thou/uL (1.40-6.50); %Basophils 0.3 % (0.0-1.0); %Eosinophils 1.4 % (0.0-10.0); %Lymphocytes 25.4 % (21.0-51.0); %Neutrophils 68.7 % (42.0-75.0); Hematocrit 35.7 % (36.0-47.0); Hemoglobin 11.1 g/dL (12.0-16.0); Mean Corpuscular HGB CONC 31.1 g/dL (32.0-36.0); Mean Corpuscular Hemoglobin 25.8 pg (27.0-31.0); Mean Corpuscular Volume 82.8 fl (78.0-98.0); Mean Platelet Volume 8.9 fL (7.4-10.4); Platelet Count 292 10x3/uL (130-400); RBC Distribution Width 18.6 % (11.5-14.5); Red Blood Cell (RBC) Count 4.31 mill/uL (4.20-5.40); White Blood Cell (WBC) Count 6.5 10x3/uL (4.8-10.8)
[2022-11-29 00:55] LABS: ALT (SGPT) 10 U/L (8-55); AST (SGOT) 13 U/L (5-34); Albumin 4.2 g/dL (3.4-4.8); Alkaline Phosphatase 96 U/L (40-110); Anion Gap 16 mmol/L (10-20); BUN (Urea Nitrogen) 17 mg/dL (9.8-20.1); Bilirubin, Total 0.3 mg/dL (0.2-1.2); Calc. Creatinine Clearance 0 mL/min (70-130); Calcium 9.7 mg/dL (7.8-10.44); Carbon Dioxide 23 mmol/L (23-31); Chloride 108 mmol/L (98-107); Estimated GFR 76; Globulin 3.4 g/dL (2.4-3.5); Glucose 126 mg/dL (83-110); Potassium 4.2 mmol/L (3.5-5.1); Protein, Total 7.6 g/dL (5.8-8.1); Sodium 143 mmol/L (136-145)
[2022-11-29 01:51] LABS: Troponin I Less than 0.010 ng/mL (< 0.028)
[2022-11-29 01:52] LABS: Magnesium 2.1 mg/dL (1.6-2.6)
== END 2022-11-29 02:40 | disposition home or self-care (01) ==
LOC: ERS 21:33
DX: R51.9 Headache, unspecified (principal); E78.2 Mixed hyperlipidemia
CPT/HCPCS: 36415; 70450; 71045; 80053; 83735; 84484; 85025; 93005